=== PATIENT | female | born 1985 | race African-American/Black ===

== ENCOUNTER 2017-08-22 20:34 | Emergency (ER) | payer MEDICAID ==
[~2017-08-22] VITALS: Ht 170.2 cm; Wt 94.0 kg
[2017-08-22] MEDS ORDERED: ACETAMINOPHEN 325MG TABLET PO ONE (22:15)
[2017-08-22] MEDS ORDERED: KETOROLAC 60MG/2ML VIAL IM ONE (23:15)
[2017-08-22] MEDS ORDERED: DEXAMETHASONE 10 MG/ML VIAL IM ONE (23:15)
[2017-08-23] MEDS ORDERED: SODIUM CHLORIDE 0.9% 1,000 ML IV ONE
[2017-08-23 00:30] VITALS: BP 126/74
== END 2017-08-23 01:36 | disposition home or self-care (01) ==
LOC: ER 20:34
DX: J02.9 Acute pharyngitis, unspecified (principal)
CPT/HCPCS: 81025; 87070; 87430; 96372; 99284; J1100; J1885; J7030

== ENCOUNTER 2018-05-28 08:48 | Emergency (ER) | payer MEDICAID ==
[~2018-05-28] VITALS: Ht 170.2 cm; Wt 79.0 kg
[2018-05-28 08:50] VITALS: BP 139/84
== END 2018-05-28 09:48 | disposition home or self-care (01) ==
LOC: ER 08:48
DX: S00.432A Contusion of left ear, initial encounter (principal); B34.9 Viral infection, unspecified; F07.81 Postconcussional syndrome; Z88.1 Allergy status to other antibiotic agents; X58.XXXA Exposure to other specified factors, initial encounter; Y93.89 Activity, other specified; Y92.89 Other specified places as the place of occurrence of the external cause; Y99.8 Other external cause status
CPT/HCPCS: 99283